=== PATIENT | male | born 1980 | race Caucasian/White ===

== ENCOUNTER 2019-01-11 23:04 | Emergency (ER) | payer BC, SELFPAY ==
--- NOTE | 2019-01-11 23:10 | DI.RAD.S_ITS ---
PROCEDURE: XR CHEST 2V INDICATIONS: SOB, cough, fever TECHNIQUE: 2 views of the chest were acquired. COMPARISON: None. FINDINGS: Surgical changes and devices: None. Lungs and pleura: Lungs are clear. No pleural effusions or pneumothorax. Mediastinum: Mediastinal contours are normal. Heart size is normal. Bones and chest wall: No suspicious bony abnormalities. Soft tissues appear unremarkable. IMPRESSION: No acute cardiopulmonary findings. Dictated by: Kaylyn Barbosa M.D. on 01/12/2019 at 6:48 Approved by: Kaylyn Barbosa M.D. on 01/12/2019 at 6:48
[2019-01-11 23:12] VITALS: BP 131/74; PULSE 100; RESP 105; TEMP 37.7; O2SAT 96; BMI 21.7
--- NOTE | 2019-01-11 23:16 | ED.URI ---
HPI - URI/Sore Throat General Chief Complaint: Upper Respiratory Symptoms Stated Complaint: states chest infection Time Seen by Provider: 01/11/19 23:10 Source: patient Mode of arrival: Ambulatory Limitations: no limitations History of Present Illness HPI Narrative: 38-year-old male vapors with history of type 1 diabetes and multiple episodes of pneumonia presents with 1 week of increasing shortness of breath with productive cough and 2 days of fever and shaking chills. Fever is as high as 102 at home. He is not dizzy nor weak or lightheaded. He denies any significant abnormalities with his blood sugars or change in diabetic regimen. MD Complaint: fever and cough Onset (ago): day(s) Duration: constant Severity: moderate Relieving factors: nothing Exacerbating factors: nothing Description of mucous: yellow Able to tolerate fluids by mouth: Yes Associated symptoms: fever and chills Treatments prior to arrival: none Related Data Home Medications Medication Instructions Recorded Confirmed alprazolam 1 mg tablet 1 mg PO TID 12/10/18 12/10/18 insulin aspart U-100 100 unit/mL 5 unit SUBCUT TID 12/10/18 12/10/18 (3 mL) subcutaneous pen insulin glargine 100 unit/mL (3 30 unit SUBCUT DAILY 12/10/18 12/10/18 mL) subcutaneous pen Previous Rx's Medication Instructions Recorded diazepam 10 mg tablet See Rx Instructions PO .COMPLEX 12/10/18 #49 tab gabapentin 300 mg capsule 600 mg PO TID #180 cap 01/03/19 levofloxacin [Levaquin] 750 mg PO Q24H #7 tab 01/12/19 Allergies Allergy/AdvReac Type Severity Reaction Status Date / Time No Known Drug Allergies Allergy Verified 01/11/19 23:12 Review of Systems Constitutional Constitutional: Reports chills, Reports fatigue, Reports fever(s), Denies frequent falls, Denies lethargy and Denies weakness Eyes Eyes: Denies change in vision, Denies eye discharge, Denies irritation and Denies loss of vision ENT Ears, Nose, Mouth, and Throat: Denies change in voice, Denies dizziness, Denies neck pain, Denies sore throat and Denies throat swelling Cardiovascular Cardiovascular: Denies chest pain, Denies irregular heart rhythm, Denies lightheadedness, Denies palpitations, Reports dyspnea, Denies dyspnea on exertion and Denies orthopnea Respiratory Respiratory: Reports change in phlegm color, Reports cough, Reports dyspnea, Denies dyspnea on exertion and Denies wheezing Gastrointestinal Gastrointestinal: Denies abdominal pain, Denies change in bowel habits, Denies diarrhea, Denies nausea and Denies vomiting Genitourinary Genitourinary: Denies hematuria, Denies flank pain, Denies urinary incontinence and Denies urinary urgency Musculoskeletal Musculoskeletal: Denies back pain, Denies muscle weakness, Denies neck pain, Denies numbness and Denies tingling Integumentary/Breasts Skin/Breast: Denies pruritus, Denies erythema, Denies rash and Denies wounds Neurologic Neurologic: Denies behavioral changes, Denies confusion, Denies dizziness, Denies frequent falls, Denies loss of vision, Denies numbness, Denies tingling and Denies weakness Psychiatric Psychiatric: Denies anxiety, Denies behavioral changes, Denies confusion, Denies depression, Denies homicidal ideation and Denies suicidal ideation Endocrine Endocrine: Reports fatigue, Denies flushing and Denies palpitations Hematologic/Lymphatic Hematologic/Lymphatic: Denies easy bruising Allergic/Immunologic Allergic/Immunologic: Denies urticaria, Denies throat swelling and Denies wheezing Patient History tobacco type: vaping alcohol intake frequency: holidays/special occasions only Substance Use Type: does not use Exam Narrative Exam Narrative: GENERAL: [38] year old patient appears stated age. Well-nourished, well-developed patient, in mild distress. HEAD: Atraumatic. Normocephalic. EYES: Pupils equal round and reactive. Extraocular motions intact. No scleral icterus. No injection or drainage. ENT: Nose without bleeding, purulent drainage. Throat without erythema, tonsillar hypertrophy or exudate. Airway patent. NECK: Trachea midline. Non tender CARDIOVASCULAR: Regular rate and rhythm without murmurs, gallops, or rubs. RESPIRATORY: Clear to auscultation. Breath sounds equal bilaterally. No wheezes, rales, or rhonchi. GASTROINTESTINAL: Abdomen soft, non-tender, nondistended. EXTREMITIES: No edema or joint tenderness. BACK: Nontender without deformity or crepitance. No flank tenderness. NEURO: AOx3. SKIN: No rash or erythema of visible areas Initial Vital Signs Initial Vital Signs: Vital Signs Temperature 99.9 F H 01/11/19 23:12 Pulse Rate 100 H 01/11/19 23:12 Respiratory Rate 105 H 01/11/19 23:12 Blood Pressure 131/74 01/11/19 23:12 Pulse Oximetry 96 01/11/19 23:12 Course Orders Ordered: ED Orders 01/11/19 23:10 XR chest 2V Stat Venous Blood Gas Stat 01/11/19 23:15 Basic Metabolic Panel Stat Complete Blood Count AUTO DIFF Stat Ketones (Beta-Hydroxybutyrate) Stat Lactate (Lactic Acid) Stat 01/11/19 23:25 Influenza A & B (PCR) Stat 01/11/19 23:26 Blood Culture Stat 01/12/19 01:09 Lactate (Lactic Acid) Stat Discontinued Medications Sodium Chloride (Normal Saline 0.9%) 1,000 mls @ 1,000 mls/hr IV BOLUS ONE Stop: 01/12/19 00:09 Last Infusion: 01/12/19 00:45 Dose: 0 mls/hr Documented by: Admin: 01/11/19 23:18 Dose: 1,000 mls/hr Documented by: RADAMES Levofloxacin (Levaquin) 750 mg in 150 mls @ 100 mls/hr IV NOW ONE Stop: 01/12/19 01:41 Last Admin: 01/12/19 01:39 Dose: Not Given Documented by: PAXTONM Sodium Chloride (Normal Saline 0.9%) 1,000 mls @ 1,000 mls/hr IV BOLUS ONE Stop: 01/12/19 01:11 Last Admin: 01/12/19 00:45 Dose: 1,000 mls/hr Documented by: JAMARCUS Levofloxacin (Levaquin) 750 mg PO NOW ONE Stop: 01/12/19 00:48 Last Admin: 01/12/19 00:52 Dose: 750 mg Documented by: JAMARCUS Vital Signs Vital signs: Vital Signs - 8 hr 01/11/19 23:12 01/12/19 00:00 01/12/19 01:00 Temperature 99.9 F H Pulse Rate 100 H 86 84 Respiratory Rate 105 H 15 16 Blood Pressure 131/74 Blood Pressure [Left Arm] 125/65 130/67 Pulse Oximetry 96 98 99 01/12/19 01:52 Temperature Pulse Rate 87 Respiratory Rate 15 Blood Pressure 135/63 Blood Pressure [Left Arm] Pulse Oximetry 99 MDM - URI/Sore Throat Lab Data Result diagrams: 01/11/19 23:15 01/11/19 23:15 Labs: Lab Results 01/11/19 01/11/19 01/11/19 Range/Units 23:10 23:15 23:15 WBC 6.0 (4.5-11.0) X10^3/uL RBC 4.59 (4.5-5.9) X10^6/uL Hgb 13.9 (13.5-17.5) g/dL Hct 41.3 (41-53) % MCV 89.9 (80-100) fL MCH 30.2 (26-34) PG MCHC 33.6 (30-36) % RDW 13.7 (11.6-14.8) % Plt Count 143 L (150-400) X10^3/uL Neut % (Auto) 78.5 H (50-75) % Lymph % (Auto) 14.3 L (25-40) % [place] % (Auto) 6.9 (3-14) % Eos % (Auto) 0.0 L (2-4) % Baso % (Auto) 0.3 (0-2) % Neut # (Auto) 4700 (3022-8118) /uL Lymph # (Auto) 900 L (6604-0289) /uL [place] # (Auto) 400 (0-900) /uL Eos # (Auto) 0 (0-450) /uL Baso # (Auto) 0 (0-100) /uL VBG pH 7.37 (7.33-7.43) VBG pCO2 46.1 (45-50) mmHg VBG pO2 28 L (35-45) mmHg VBG HCO3 27 (23-28) mmol/L VBG Total CO2 28 (24-29) mmol/L VBG O2 Saturation 51 L (70-75) % VBG Base Excess 2.0 (0-4) mmol/L Sodium (137-145) mmol/L Potassium (3.4-5.1) mmol/L Chloride (98-107) mmol/L Carbon Dioxide (22-32) mmol/L BUN (9-20) mg/dL Creatinine (0.66-1.25) mg/dL Estimated GFR (>60) mL/min BUN/Creatinine Ratio (6-22) Glucose (70-100) mg/dL Lactate (0.7-2.1) mmol/L Calcium (8.4-10.2) mg/dL Ketones 0.08 (<0.27) mmol/L Influenza A (RT-PCR) (NEGATIVE) Influenza B (RT-PCR) (NEGATIVE) 01/11/19 01/11/19 01/11/19 Range/Units 23:15 23:15 23:25 WBC (4.5-11.0) X10^3/uL RBC (4.5-5.9) X10^6/uL Hgb (13.5-17.5) g/dL Hct (41-53) % MCV (80-100) fL MCH (26-34) PG MCHC (30-36) % RDW (11.6-14.8) % Plt Count (150-400) X10^3/uL Neut % (Auto) (50-75) % Lymph % (Auto) (25-40) % Living[place] % (Auto) (3-14) % Eos % (Auto) (2-4) % Baso % (Auto) (0-2) % Neut # (Auto) (8039-5479) /uL Lymph # (Auto) (0242-5828) /uL Livingston # (Auto) (0-900) /uL Eos # (Auto) (0-450) /uL Baso # (Auto) (0-100) /uL VBG pH (7.33-7.43) VBG pCO2 (45-50) mmHg VBG pO2 (35-45) mmHg VBG HCO3 (23-28) mmol/L VBG Total CO2 (24-29) mmol/L VBG O2 Saturation (70-75) % VBG Base Excess (0-4) mmol/L Sodium 133 L (137-145) mmol/L Potassium 4.1 (3.4-5.1) mmol/L Chloride 96 L (98-107) mmol/L Carbon Dioxide 30 (22-32) mmol/L BUN 14 (9-20) mg/dL Creatinine 0.80 (0.66-1.25) mg/dL Estimated GFR > 60.0 (>60) mL/min BUN/Creatinine Ratio 17.5 (6-22) Glucose 386 H (70-100) mg/dL Lactate 2.4 H (0.7-2.1) mmol/L Calcium 8.7 (8.4-10.2) mg/dL Ketones (<0.27) mmol/L Influenza A (RT-PCR) Flu a negative (NEGATIVE) Influenza B (RT-PCR) Flu b negative (NEGATIVE) 01/12/19 Range/Units 01:09 WBC (4.5-11.0) X10^3/uL RBC (4.5-5.9) X10^6/uL Hgb (13.5-17.5) g/dL Hct (41-53) % MCV (80-100) fL MCH (26-34) PG MCHC (30-36) % RDW (11.6-14.8) % Plt Count (150-400) X10^3/uL Neut % (Auto) (50-75) % Lymph % (Auto) (25-40) % Living[place] % (Auto) (3-14) % Eos % (Auto) (2-4) % Baso % (Auto) (0-2) % Neut # (Auto) (0967-1411) /uL Lymph # (Auto) (0052-3956) /uL Livingston # (Auto) (0-900) /uL Eos # (Auto) (0-450) /uL Baso # (Auto) (0-100) /uL VBG pH (7.33-7.43) VBG pCO2 (45-50) mmHg VBG pO2 (35-45) mmHg VBG HCO3 (23-28) mmol/L VBG Total CO2 (24-29) mmol/L VBG O2 Saturation (70-75) % VBG Base Excess (0-4) mmol/L Sodium (137-145) mmol/L Potassium (3.4-5.1) mmol/L Chloride (98-107) mmol/L Carbon Dioxide (22-32) mmol/L BUN (9-20) mg/dL Creatinine (0.66-1.25) mg/dL Estimated GFR (>60) mL/min BUN/Creatinine Ratio (6-22) Glucose (70-100) mg/dL Lactate 0.6 L (0.7-2.1) mmol/L Calcium (8.4-10.2) mg/dL Ketones (<0.27) mmol/L Influenza A (RT-PCR) (NEGATIVE) Influenza B (RT-PCR) (NEGATIVE) Imaging Data Chest x-ray: Attestation: I personally reviewed and interpreted this imaging study as follows: My impression: RML infiltrate MDM Narrative Medical decision making narrative: 30-year-old male diabetic presents with fever and productive cough. Chest x-ray suggests a right middle lobe pneumonia. Patient is not septic and feels much better after fluids. Labs are reassuring as lactate improves with fluids. He is given return precautions and had questions answered to his satisfaction Discharge Plan Departure Patient Disposition: Home Clinical Impression: Pneumonia of right middle lobe due to infectious organism Discharge Date/Time: 01/12/19 01:55 Instructions: DI for Pneumonia -- Adult Activity Restrictions/Additional Instructions: *You have been diagnosed with [community-acquired pneumonia] *What to do: *Take medications as directed: Antibiotics sent to [facility] in [place] *Follow up with your primary care provider in 2-3 days, call for an appointment. Let them know you were seen in the Emergency Department and that we ask that you be seen in follow up *Return to ER if you should have any new, worsening or concerning symptoms Prescriptions: New levofloxacin [Levaquin] 750 mg tablet 750 mg PO Q24H Qty: 7 RF: 0 No Action Novolog Flexpen U-100 Insulin 100 unit/mL (3 mL) insulin pen 5 unit SUBCUT TID RF: 0 Lantus Solostar U-100 Insulin 100 unit/mL (3 mL) insulin pen 30 unit SUBCUT DAILY RF: 0 alprazolam 1 mg tablet 1 mg PO TID RF: 0 Hold Instructions: 12/10 plan for taper diazepam 10 mg tablet See Rx Instructions PO .COMPLEX Qty: 49 RF: 0 gabapentin 300 mg capsule 600 mg PO TID Qty: 180 RF: 0
[2019-01-11] MEDS: SODIUM CHLORIDE 0.9% 1,000 ML 1000 ML IV (23:18)
[2019-01-11 23:26] LABS: PCO2 VBG 46.1 mmHg (45-50); pH VBG 7.37 (7.33-7.43)
[2019-01-11 23:27] LABS: HCO3 VBG 27 mmol/L (23-28); Oxygen Saturation VBG 51 % (70-75); PO2 VBG 28 mmHg (35-45); Total CO2 VBG 28 mmol/L (24-29)
[2019-01-11 23:34] LABS: Add Manual Diff / Slide Review NO; Basophils Absolute Auto 0 /uL (0-100); Basophils Percent Auto 0.3 % (0-2); Eosinophils Absolute Auto 0 /uL (0-450); Hematocrit 41.3 % (41-53); Hemoglobin 13.9 g/dL (13.5-17.5); Lymphocytes Absolute Auto 900 /uL (1100-4500); Lymphocytes Percent Auto 14.3 % (25-40); Mean Corpuscular HGB Conc 33.6 % (30-36); Mean Corpuscular Hemoglobin 30.2 PG (26-34); Mean Corpuscular Volume 89.9 fL (80-100); Monocytes Absolute Auto 400 /uL (0-900); Monocytes Percent Auto 6.9 % (3-14); Neutrophils Absolute Auto 4700 /uL (1500-7000); Neutrophils Percent Auto 78.5 % (50-75); Platelet Count 143 X10^3/uL (150-400); Red Blood Cell Count 4.59 X10^6/uL (4.5-5.9); Red Cell Distribution Width 13.7 % (11.6-14.8)
[2019-01-11 23:42] LABS: Lactate (Lactic Acid) 2.4 mmol/L (0.7-2.1)
[2019-01-11 23:43] LABS: BUN Creatinine Ratio 17.5 (6-22); Blood Urea Nitrogen 14 mg/dL (9-20); Calcium 8.7 mg/dL (8.4-10.2); Carbon Dioxide 30 mmol/L (22-32); Chloride 96 mmol/L (98-107); Estimated Glomerular Filt Rate > 60.0 mL/min (>60); Glucose 386 mg/dL (70-100); HEMOLYSIS < 15 (0-50); Potassium 4.1 mmol/L (3.4-5.1); Sodium 133 mmol/L (137-145)
[2019-01-11 23:45] LABS: Ketones (Beta-Hydroxybutyrate) 0.08 mmol/L (<0.27)
[2019-01-12] VITALS: BP 125/65; PULSE 86; RESP 15; O2SAT 98
[2019-01-12 00:10] LABS: Influenza A - CEPHEID Flu A NEGATIVE (NEGATIVE); Influenza B - CEPHEID Flu B NEGATIVE (NEGATIVE)
[2019-01-12] MEDS: SODIUM CHLORIDE 0.9% 1,000 ML 1000 ML IV (00:45)
[2019-01-12] MEDS: levoFLOXacin 250 MG TABLET 750 MG PO (00:52)
[2019-01-12 01:00] VITALS: BP 130/67; PULSE 84; RESP 16; O2SAT 99
--- NOTE | 2019-01-12 01:13 | PC.NURSE ---
frankie by cady denise
[2019-01-12 01:28] LABS: Reflexed Lactate in 2 Hours Y
[2019-01-12 01:29] LABS: Lactate (Lactic Acid) 0.6 mmol/L (0.7-2.1)
[2019-01-12 01:52] VITALS: BP 135/63; PULSE 87; RESP 15; O2SAT 99
--- NOTE | 2019-02-07 20:18 | PC.NURSE ---
Normal saline stopped prior to discharge.
--- NOTE | 2019-02-07 20:21 | PC.NURSE ---
Normal saline stopped at 0045.
--- NOTE | 2019-02-24 18:48 | PC.NURSE ---
Late entry, IV fluid stop time 0145.
== END 2019-01-12 01:55 | disposition home or self-care (01) ==
PROVIDERS: Emergency Provider Emergency Medicine
DX: J18.9 Pneumonia, unspecified organism (principal); E10.9 Type 1 diabetes mellitus without complications
CPT/HCPCS: 36415; 71046; 80048; 82009; 82805; 83605; 85025; 87040; 87502; 96360; 96361; 99283; 99284

== ENCOUNTER → 2021-10-03 16:41 | Outpatient (CLI) | payer BC, SELFPAY ==
[2021-10-03 17:31] LABS: UR Morphine/Opiate cutoff 300 Negative (Negative); Ur Creatinine Normal (Normal); Ur Specific Gravity Normal (Normal); Urine Amphetamines Negative (Negative); Urine Barbiturates Negative (Negative); Urine Benzodiazepines Negative (Negative); Urine Cocaine Negative (Negative); Urine MDMA Negative (Negative); Urine Methadone Negative (Negative); Urine Methamphetamines Negative (Negative); Urine Oxycodone Negative (Negative); Urine Phencyclidine Negative (Negative); Urine Tetrahydrocannabinol Negative (Negative); Urine Tricyclic Antidepressant Negative (Negative); Urine pH Normal (Normal)
== END ==
PROVIDERS: Referring Provider Psychiatry & Neurology Psychiatry; Visit Provider Psychiatry & Neurology Psychiatry
DX: Z51.81 Encounter for therapeutic drug level monitoring (principal); E10.9 Type 1 diabetes mellitus without complications; F90.9 Attention-deficit hyperactivity disorder, unspecified type
CPT/HCPCS: 36415; 80305; 83036